=== PATIENT | female | born 1980 | race Caucasian/White ===

== ENCOUNTER 2018-12-15 07:29 | Day surgery (SDC) | payer OTHER ==
[2018-12-14 09:17] VITALS: BMI 29.2
[2018-12-15] MEDS ORDERED: Fentanyl 100 MCG/2 ML VIAL ONE (09:44)
[2018-12-15] MEDS ORDERED: methylPREDNISolone Acetate 40 mg/ml Vial ONE (10:10)
[2018-12-15] MEDS ORDERED: Ondansetron PF 4 MG/2 ML Vial ONE (15:04)
[2018-12-15] MEDS ORDERED: Dexamethasone 20 MG/5 ML VIAL ONE (15:04)
[2018-12-15] MEDS ORDERED: Lidocaine 2% PF 5 ML VIAL ONE (15:04)
[2018-12-15] MEDS ORDERED: PROPOFOL 200 MG/20 ML VIAL ONE (15:04)
--- NOTE | 2018-12-16 11:32 | OP ---
DATE OF PROCEDURE: 12/15/2018 PREOPERATIVE DIAGNOSES: 1. Chronic tonsillitis. 2. Tonsillar hypertrophy. POSTOPERATIVE DIAGNOSES: 1. Chronic tonsillitis. 2. Tonsillar hypertrophy. PROCEDURES PERFORMED: Tonsillectomy. ESTIMATED BLOOD LOSS: 0 mL. COMPLICATIONS: None. ANESTHESIA: GETA. PROCEDURE IN DETAIL: The patient was taken to the operating room, placed supine on the table. General endotracheal anesthesia was obtained by the anesthesia staff. The Kiersten-Aaron mouth gag was then introduced in the oral cavity. The tonsils were enlarged, cryptic and were noted to have multiple tonsil stones within them. An Allis clamp was used to grasp the tonsils and a subcapsular tonsillectomy performed bilaterally using Bovie electrocautery. The indirect laryngeal mirror was then used to visualize the adenoid pad, which had been previously resected. The oral cavity was irrigated with cool saline. The patient tolerated the procedure well. Job ID: [id number]
== END 2018-12-15 11:50 | disposition home or self-care (01) ==
LOC: SDC 07:29
PROVIDERS: ATTEND Otolaryngology Plastic Surgery within the Head & Neck
PROC: 0CTPXZZ Resection of Tonsils, External Approach (ICD-10-PCS; principal; 2018-12-15)
DX: J35.01 Chronic tonsillitis (principal)
CPT/HCPCS: 85014; 88304; J0131; J1030; J1100; J2001; J2405; J2704; J3010

== ENCOUNTER 2020-05-25 14:13 | Outpatient (CLI) | payer OTHER ==
[2020-05-25 11:01] LABS: BHCG - Serum Negative (NEGATIVE); Pregs Control Bar Appear? YES (CONTROL BAR)
[2020-05-25 11:02] LABS: Pregs Control Background? CLEAR/WHITE (CLR/WHITE)
[2020-05-25 11:36] LABS: Hemoglobin 12.6 g/dL (12.0-16.0); Mean Corpuscular HGB CONC 32.3 G/DL (32.0-36.0); Mean Corpuscular Hemoglobin 29.4 PG (27.0-33.0); Mean Corpuscular Volume 90.9 fl (80.0-100.0); Mean Platelet Volume 10.2 fl (7.4-10.4); Platelet Count 240 10x3/uL (130-400); RBC Distribution Width 12.6 % (11.5-14.5); Red Blood Cell (RBC) Count 4.29 10x6/uL (3.90-5.20); White Blood Cell (WBC) Count 6.9 10x3/uL (4.5-11.0)
[2020-05-26 11:31] LABS: SARS-CoV-2 MS2 Positive; SARS-CoV-2 N Gene Negative; SARS-CoV-2 S Gene Negative; SARS-CoV-2 by NAA Not Detected (NotDetected); SARS-CoV-2 orf1ab Negative
== END 2020-05-25 14:14 | disposition home or self-care (01) ==
LOC: LABBT 14:13
PROVIDERS: ATTEND Student in an Organized Health Care Education/Training Program
DX: Z01.812 Encounter for preprocedural laboratory examination (principal); Z20.828 Contact with and (suspected) exposure to other viral communicable diseases; D25.9 Leiomyoma of uterus, unspecified
CPT/HCPCS: 84703; 85027; 86850; 86900; 86901; 87635; U0003

== ENCOUNTER 2020-05-29 05:54 | Day surgery (SDC) | payer OTHER ==
[2020-05-28 09:59] VITALS: BMI 30.9
[2020-05-29] MEDS ORDERED: Gabapentin 300 MG CAP ONE ×2 (06:14→06:15)
[2020-05-29] MEDS ORDERED: CeleCOXIB 100 MG CAP ONE (06:14)
[2020-05-29] MEDS ORDERED: Famotidine/PF 20 mg/2ml Vial ONE ×2 (06:14)
[2020-05-29] MEDS ORDERED: Bupivacaine 0.25% HCL 30 ML VIAL ONE (06:54)
[2020-05-29] MEDS ORDERED: Lidocaine 1% w/Epinephrine 1:100K 20 ML VIAL ONE (06:54)
[2020-05-29] MEDS ORDERED: Fentanyl 250 MCG/5 ML VIAL ONE (06:56)
[2020-05-29] MEDS ORDERED: Scopolamine 1.5 mg/72 hour Patch ONE (07:05)
[2020-05-29] MEDS ORDERED: Midazolam HCl 2 mg/2 ml Vial ONE (07:05)
[2020-05-29] MEDS ORDERED: Isosulfan Blue 50 MG/5 ML VIAL ONE (08:36)
[2020-05-29] MEDS ORDERED: Methylene Blue 50 MG/10 ML AMPUL ONE (08:36)
[2020-05-29] MEDS ORDERED: HYDROmorphone 2 MG/ML VIAL SLOW IVP PRN (09:40)
[2020-05-29] MEDS ORDERED: Ondansetron HCl/PF 4 MG/2 ML Vial IVP PRN (09:40)
[2020-05-29] MEDS ORDERED: Morphine Sulfate 2 MG/ML SYRINGE SLOW IVP PRN (09:40)
[2020-05-29] MEDS ORDERED: Promethazine HCl 25 MG/ML VIAL SLOW IVP PRN (09:40)
[2020-05-29] MEDS ORDERED: PACU-Morphine 4MG/ML VIAL SLOW IVP PRN (09:40)
[2020-05-29] MEDS ORDERED: Meperidine HCl/PF 25 MG/ML VIAL SLOW IVP PRN (09:40)
[2020-05-29] MEDS ORDERED: Ketorolac Tromethamine 30 MG/ML VIAL IVP PRN (09:40)
[2020-05-29] MEDS ORDERED: Promethazine HCl 25 MG/ML VIAL IM PRN (09:40)
[2020-05-29] MEDS ORDERED: Fentanyl 100 MCG/2 ML VIAL ONE (09:52)
[2020-05-29] MEDS ORDERED: Meperidine HCl/PF 25 MG/ML VIAL ONE (09:52)
[2020-05-29] MEDS ORDERED: PHENYLEPHRINE-NS 100 MCG/ML 10 ML SYRINGE ONE (12:02)
[2020-05-29] MEDS ORDERED: Glycopyrrolate 0.2 MG/ML 5 ML SYRINGE ONE (12:02)
[2020-05-29] MEDS ORDERED: Dexamethasone 20 MG/5 ML VIAL ONE (12:02)
[2020-05-29] MEDS ORDERED: Rocuronium Bromide 10 MG/ML (10ML VIAL) ONE (12:02)
[2020-05-29] MEDS ORDERED: Ondansetron PF 4 MG/2 ML Vial ONE (12:02)
[2020-05-29] MEDS ORDERED: PROPOFOL 200 MG/20 ML VIAL ONE (12:02)
[2020-05-29] MEDS ORDERED: diphenhydrAMINE 50 MG/ML VIAL ONE (12:02)
--- NOTE | 2020-05-30 13:16 | OP ---
DATE OF PROCEDURE: 05/29/2020 PREOPERATIVE DIAGNOSES: 1. Abnormal uterine bleeding. 2. Pelvic pain. PROCEDURES PERFORMED: Robotic assisted total laparoscopic hysterectomy, bilateral salpingectomy, and lysis of adhesions for 30 minutes. ANESTHESIA: General endotracheal. COMB SETTER SURGEON: Susie Enciso. ESTIMATED BLOOD LOSS: 30 mL. IVF: 1700 mL crystalloid. URINE OUTPUT: 150 mL clear urine. PATHOLOGY: Uterus, cervix, and bilateral fallopian tubes. COMPLICATIONS: None. DRAINS: Clifford catheter. FINDINGS: A 12 cm uterus. Normal-appearing cervix. Dense adhesions of the uterus to the anterior abdominal wall. Adhesions of the omentum to the anterior abdominal wall and uterus. Dense adhesions of the bladder to the lower uterine segment and anterior abdominal wall. Normal ovaries and fallopian tubes bilaterally. Ureters and bladder intact. Excellent hemostasis. DESCRIPTION OF PROCEDURE: The patient was taken to the operating room, where general anesthesia was obtained without difficulty. The patient was prepped and draped in a sterile fashion in dorsal lithotomy position. Clifford catheter was placed in the bladder. A speculum was placed in the vagina. The anterior lip of the cervix was grasped with single-tooth tenaculum. The uterus then sounded to 12 cm. The HAYLEE manipulator was assembled with a 12 cm tip and a 4 cm colpotomizer ring. The cervix was progressively dilated with Burke dilators and the manipulator was inserted into the uterus. The tenaculum and speculum were removed out of the vagina. Balloons were inflated. Legs were placed in low lithotomy. Attention was turned to the abdomen. A mixture of 0.5% Marcaine with epi and 1% lidocaine plain was infiltrated into the umbilicus and a 12 mm skin incision was made. The Veress needle was passed into the abdomen, noting an opening pressure of 2 mmHg, and pneumoperitoneum was obtained without difficulty. The 12 mm trocar was advanced into the abdomen and confirmed placement with a robotic camera. Immediately noted was the adhesions starting just inferior to the umbilicus all the way down the midline to where the bladder was, of the omentum as well as the uterus. This was from the patient's previous C-sections. Visibility of the lateral portions of the pelvis and the upper abdomen was fine, and therefore, the right and left lower quadrant 8 mm robotic trocars were placed under direct visualization after infiltrating with anesthetic mixture. The right upper quadrant 11 mm port was also placed under direct visualization after infiltrating with the anesthetic mixture. Steep Trendelenburg was obtained. The robot was then docked. The right robotic arm contained monopolar scissors. Left robotic arm contained a fenestrated bipolar. The surgeon console took control. The omental adhesions at the abdominal wall were grasped with the fenestrated and pull traction on and incised on cautery, where there was a clear window to ensure no entry into the bladder or entry into any bowel structures that might be tucked away within the omentum. The omentum was layered out carefully using a fenestrated to cauterize vessels and then used scissors to incise sharply with bipolar cautery. The omentum once was taken down from the anterior abdominal wall, the omentum that was attached to the fundal portion of the uterus was also incised clear windows. At that point, the uterus was met anteriorly and the uterus was adherent all the way up the anterior side of the uterus and incision was made with cautery at what was thought to be the plane between the anterior abdominal wall and the uterus. After incising this area a few centimeter down the length of the uterus, the bladder was backfilled to insure that the bladder did not traverse all the way up to the level of the uterus to ensure that if the peritoneum was entered into, this would not be entry into the bladder, which it did not. It was mainly in the lower uterine segment. The uterus was then incised. There was some blunt dissection that was able to be performed and this helped to develop planes in between the uterus and the anterior abdominal wall. Once the lower portion had been met and the bladder and vesicouterine peritoneum were met at the lower uterine segment, the fallopian tube on the left side was grasped and elevated. The mesosalpinx was cauterized and incised with the fenestrated followed by the scissors. Once the medial portion of the fallopian tube had been met, this was clamped across, cauterized with the fenestrated, incised with scissors, and removed out of the abdomen. The utero-ovarian was cauterized multiple times and incised with scissors, as was the medial portion of the round ligament cauterized and incised. Posteriorly, it was completely free of any adhesions. The posterior leaf of the broad ligament was incised, tenting this downwardly with the fenestrated to brush away any vasculature or retroperitoneal adventitia. Then, the anterior leaf of the broad ligament was tented up, ensuring a clear window and incising on this down to the level of the bladder flap. The retroperitoneum was dissected off the uterine vessels and the ureter was noted in the pelvic sidewall laterally. The hemostasis was achieved with pinpoint bursts of energy with the scissors on bipolar energy. At that point, attention was turned to the right fallopian tube, that was grasped and elevated. The mesosalpinx was sequentially cauterized with the fenestrated and incised with the scissors on cautery. The medial portion was clamped across with the fenestrated, cauterized, and then incised with the scissors and removed out of the abdomen. The utero-ovarian was cauterized multiple times with the fenestrated, incised with scissors, and then taken down to the midportion of the round ligament that was cauterized with the fenestrated and incised with scissors. The posterior leaf of the broad ligament was also incised, tenting up in the same fashion as the contralateral side with the fenestrated and incising down to the uterosacral. The anterior leaf of the broad ligament was also incised down to the level of the uterosacral. The retroperitoneal fibers were dissected off the lateral portion of the uterine vessels. The ureter was noted laterally in the pelvic sidewall. The bladder was then backfilled to notate the bladder limitations, this was adherent to the pubocervical fascia. Layering technique was used superficially on the vesicouterine peritoneum. I was able to split my fenestrated underneath there and kind of push and spread and dissect some of the bladder to where I could incise over the superficial layers of the peritoneum. The deeper layers were then carefully layered out from the lateral portion. A window was identified at the pubocervical fascia around the level of the colpotomizer ring and this was able to identify some of the adhesion that was present of the bladder and avoid any inadvertent injury to the bladder. This was superficially incised hugging the cervix and vaginal mucosa, and gradual layering of the bladder flap was performed until the bladder was completely dissected away. The bladder was then backfilled again after this. The vessels were then cauterized multiple times and incised. There was a strange tubular structure that was thought to be the median umbilical ligament after careful review of the structures that had been taken down with the adhesions, however, it also appeared to possibly be tubular. Therefore, methylene blue was called for and was given IV to ensure no blue extravasation of fluid into the surgical field, which did not happen and this was done at least 30 minutes prior to the conclusion of the procedure, and therefore, it was ensured that the ureters were intact, the bladder was also intact, there was no blue leak seepage from the bladder either, and the urine was noted to be draining blue clear fluid. The vessels were then incised after adequate cautery. There was ooziness of some of the pedicles that were venous. Hemostasis was carefully achieved with the fenestrated. Colpotomy was then performed after scoring on the pubocervical fascia to bluntly dissect any bladder adventitia down below the level of the colpotomizer ring and leave plenty of adequate vaginal mucosa for cuff closure. The colpotomy was then performed circumferentially and once the uterus was disconnected, the uterus was placed into the vagina as a means to maintain pneumoperitoneum. Copious irrigation was performed of the pelvis and suctioned. Hemostasis was achieved of the vaginal cuff with the fenestrated. The scissors were traded out for the needle pile driver operator and a 2-0 barbed Stratafix suture was used to close the vaginal mucosa, incorporating vaginal mucosa and posterior peritoneum in each bite and run back for a second layer. The needle was cut and removed out of the abdomen and irrigation was again performed. Low pressure check was performed and hemostasis was noted to be excellent. All instruments removed out of the abdomen. Pneumoperitoneum was released. The robot was undocked. The fascia of the umbilical port was closed with 0 Vicryl in a [id number] fashion. The skin was closed with 4-0 Monocryl in subcuticular fashion. Dermabond was applied. The vaginal cuff was checked and noted to have excellent closure vaginally with hemostasis. All instruments were removed out of the vagina. The patient tolerated the procedure well. Sponge, lap, and needle counts correct x2. The patient was taken to recovery room in stable condition. Total time lysing adhesions was 30 minutes during this case. Job ID: [id number]
== END 2020-05-29 15:05 | disposition home or self-care (01) ==
LOC: SDC 05:54
PROVIDERS: ATTEND Student in an Organized Health Care Education/Training Program
PROC: 0UT74ZZ Resection of Bilateral Fallopian Tubes, Percutaneous Endoscopic Approach (ICD-10-PCS; principal; 2020-05-29)
PROC: 0UT94ZZ Resection of Uterus, Percutaneous Endoscopic Approach (ICD-10-PCS; principal; 2020-05-29)
DX: D25.9 Leiomyoma of uterus, unspecified (principal); N72 Inflammatory disease of cervix uteri; N88.8 Other specified noninflammatory disorders of cervix uteri; N80.0 Endometriosis of uterus; Z79.899 Other long term (current) drug therapy
CPT/HCPCS: 51798; 88307; J0690; J1100; J1200; J2175; J2250; J2405; J2704; J3010; Q9968; S0020; S0028